=== PATIENT | female | born 1965 | race Caucasian/White ===

== ENCOUNTER → 2016-11-30 | Outpatient (CLI) | payer MEDICARE, MEDICAID, OTHER | LOC: MW.CHNEURO 08:00 | PROVIDERS: ATTEND Psychiatry & Neurology Neuromuscular Medicine | DX: G40.219 Localization-related (focal) (partial) symptomatic epilepsy and epileptic syndromes with complex partial seizures, intractable, without status epilepticus (principal); F88 Other disorders of psychological development | CPT/HCPCS: 99204 ==